=== PATIENT | male | born 1990 | race Caucasian/White ===

== ENCOUNTER → 2022-11-06 15:59 | Outpatient (CLI) | payer BC, SELFPAY ==
--- NOTE | ~2022-11-06 | XR_ITS ---
XR lumbar spine min 4V DATE: 11/06/2022 16:15 INDICATION: Low back pain. No injury. TECHNIQUE: AP, lateral, bilateral oblique views, coned lateral lumbosacral view COMPARISON: None FINDINGS: There is moderate degenerative disc disease at L1-2, with loss of interspace height and mil d spurring. Remaining lumbar and lumbosacral interspaces appear well preserved. No spondylolysis or spondylolisthesis is detected. The lumbar pedicles are intact. No fracture or bon e destruction is detected. The sacroiliac joints are intact. There is sclerosis and degenerative spurring at the left upper sacr oiliac joint area. IMPRESSION: Left sacroiliac sclerosis/degenerative spurring Moderate degenerative disc disease at L1-2 Reviewed, dictated and finalized at location A.
== END ==
PROVIDERS: PCP Family Medicine; Visit Provider Family Medicine
DX: M51.36 Other intervertebral disc degeneration, lumbar region (principal)
CPT/HCPCS: 72110